=== PATIENT | male | born 2000 | race Caucasian/White ===

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

== ENCOUNTER 2019-08-24 10:30 | Emergency (ER) | payer OTHER, BC ==
--- OUTSIDE RECORDS SUMMARY | 2019-08-24 10:51 | XMS REPORT | Continuity of Care Document ---
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 Problems Description No Information Available Social History Type Date Description Comments Sex Unknown ETOH Use Occasionally consumes alcohol Tobacco Use Start: Unknown Patient has never smoked Smoking Status Reviewed: 08/07/19 Patient has never smoked Exercise Type/Frequency Exercises regularly Allergies, Adverse Reactions, Alerts Description No Known Drug Allergies Medications Active Medications SIG Qnty Indications Ordering Provider Date Naproxen 1 tablet with food Unknown 500mg Tablets by mouth twice a day From Hospital History Medications No Active Medications Unknown 07/31/2019 - 07/31/2019 Immunizations Description No Information Available Vital Signs Date Vital Result Comment 08/07/2019 11:31am Height 71 inches 5'11" Weight 195.00 lb Heart Rate 96 /min BP Systolic Sitting 116 mmHg BP Diastolic Sitting 90 mmHg Respiratory Rate 14 /min Pain Level 4 O2 % BldC Oximetry 97 % BMI (Body Mass Index) 27.2 kg/m2 07/31/2019 11:47am Height 72 inches 6'0" Weight 195.00 lb Heart Rate 92 /min Respiratory Rate 16 /min Body Temperature 98.0 F Pain Level 3 at rest O2 % BldC Oximetry 98 % BMI (Body Mass Index) 26.4 kg/m2 Results Description No Information Available Procedures Date Code Description Status 08/07/201980902 Inject/Drain Joint/Bursa Major W/O US Completed 07/31/2019 88959 Xray Knee 3 Views Completed Medical Devices Description No Information Available Encounters Type Date Location Provider Dx Diagnosis Office Visit 07/31/2019 [facility] Adrián Carrasco, M25.461 Effusion, right 11:30a at [place] MD knee M23.91 Unspecified internal derangement of right knee M25.561 Pain in right knee Assessments Date Code Description Provider 08/07/2019 S72.401D Unspecified fracture of lower end of right Adrián Carrasco MD femur, subsequent encounter for closed fracture with routine healing 08/07/2019 M25.061 Hemarthrosis, right knee Adrián Carrasco MD 07/31/2019 M25.461 Effusion, right knee Adrián Carrasco MD 07/31/2019 M23.91 Unspecified internal derangement of right knee Adrián Carrasco MD 07/31/2019 M25.561 Pain in right knee Adrián Carrasco MD Plan of Treatment Future Appointment(s):08/21/2019 11:30 am - Adrián Carrasco MD at [facility] at [facility]/05/2019 - Adrián Carrasco MDS72.401D Unspecified fracture of lower end of right femur, subsequent encounter for closed fracture with routine healingFollow up:Follow up: 2 [id number] Hemarthrosis, right knee Functional Status Description No Information Available Mental Status Description No Information Available Referrals Description No Information Available
--- OUTSIDE RECORDS SUMMARY | 2019-08-24 10:51 | XMS REPORT | Continuity of Care Document ---
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 Problems Description No Information Available Social History Type Date Description Comments Sex Unknown ETOH Use Occasionally consumes alcohol Tobacco Use Start: Unknown Patient has never smoked Exercise Type/Frequency Exercises regularly Allergies, Adverse Reactions, Alerts Description No Known Drug Allergies Medications Active Medications SIG Qnty Indications Ordering Provider Date Naproxen 1 tablet with food Unknown 500mg Tablets by mouth twice a day From Hospital History Medications No Active Medications Unknown 07/31/2019 - 07/31/2019 Immunizations Description No Information Available Vital Signs Date Vital Result Comment 07/31/2019 11:47am Height 72 inches 6'0" Weight 195.00 lb Heart Rate 92 /min Respiratory Rate 16 /min Body Temperature 98.0 F Pain Level 3 at rest O2 % BldC Oximetry 98 % BMI (Body Mass Index) 26.4 kg/m2 Results Description No Information Available Procedures Description No Information Available Medical Devices Description No Information Available Encounters Description No Information Available Assessments Date Code Description Provider 07/31/2019 M25.461 Effusion, right knee Adrián Carrasco MD 07/31/2019 M23.91 Unspecified internal derangement of right knee Adrián Carrasco MD Plan of Treatment 07/31/2019 - Adrián Carrasco, MDM25.461 Effusion, right kneeNew Xrays:MRI Knee Right W/O, Ordered: 07/31/19Follow up:Follow up: after testing is [id number] Unspecified internal derangement of right knee Functional Status Description No Information Available Mental Status Description No Information Available Referrals Description No Information Available
[2019-08-24 11:39] VITALS: BP 129/72
--- NOTE | 2019-08-24 12:07 | ED ---
Throat Pain/Nasal Congestion - HPI Summary HPI Summary: 19 yr old male with the complaint of sore throat. Onset of sore throat was a couple of days ago. Associated with fever. he is a college student. no runny nose or coughing. No other complaints. - History of Current Complaint Chief Complaint: UCRespiratory Time Seen by Provider: 08/24/19 11:43 - Allergies/Home Medications Allergies/Adverse Reactions: Allergies Allergy/AdvReac Type Severity Reaction Status Date / Time dog, cat Allergy Eyes Uncoded 08/24/19 11:39 Itchy/Swollen/Red/Watery Home Medications: Home Medications Ibuprofen TAB* [Motrin TAB* 400 MG] 400 mg PO ONCE PRN 08/24/19 [History Confirmed 08/24/19] PMH/Surg Hx/FS Hx/Imm Hx Endocrine/Hematology History: Denies: Hx Diabetes Cardiovascular History: Denies: Hx Pacemaker/ICD Respiratory History: Reports: Hx Asthma History: Denies: Hx Renal Disease Sensory History: Denies: Hx Hearing Aid Psychiatric History: Denies: Hx Panic Disorder Infectious Disease History: No Infectious Disease History: Denies: Traveled Outside the [place] in Last 30 Days - Family History Known Family History: Positive: Other - parents living and healthy Negative: Respiratory Disease - Social History Occupation: Student Alcohol Use: Weekly Alcohol Amount: 10-20 Substance Use Type: Reports: None Smoking Status (MU): Never Smoked Tobacco Review of Systems Positive: Fever Positive: Sore Throat All Other Systems Reviewed And Are Negative: Yes Physical Exam Triage Information Reviewed: Yes Vital Signs On Initial Exam: Initial Vitals Temp Pulse Resp BP Pulse Ox 100.9 F 112 20 129/72 98 08/24/19 11:30 08/24/19 11:30 08/24/19 11:30 08/24/19 11:30 08/24/19 11:30 Vital Signs Reviewed: Yes Appearance: Positive: Well-Appearing, No Pain Distress Skin: Positive: Warm, Skin Color Reflects Adequate Perfusion Head/Face: Positive: Normal Head/Face Inspection Eyes: Positive: EOMI ENT: Positive: Pharyngeal erythema Neck: Positive: Nontender Respiratory/Lung Sounds: Positive: Clear to Auscultation, Breath Sounds Present Cardiovascular: Positive: RRR. Negative: Murmur Abdomen Description: Negative: Distended Musculoskeletal: Positive: Strength/ROM Intact Neurological: Positive: Sensory/Motor Intact, Alert, Oriented to Person Place, Time, CN Intact II-III, Normal Gait, Speech Normal Psychiatric: Positive: Normal Diagnostics - Vital Signs Vital Signs Temp Pulse Resp BP Pulse Ox 08/24/19 11:30 100.9 F 112 20 129/72 98 - Laboratory Lab Results: Lab Results 08/24/19 Range/Units 11:48 Group A Strep Rapid Positive A (Negative) Lab Statement: Any lab studies that have been ordered have been reviewed, and results considered in the medical decision making process. EENT Course/Dx - Course Course Of Treatment: 19 yr old with strep pharyngitis; rx with amox - Diagnoses Provider Diagnoses: Strep pharyngitis Discharge ED - Sign-Out/Discharge Documenting (check all that apply): Patient Departure All imaging exams completed and their final reports reviewed: No Studies - Discharge Plan Condition: Good Disposition: HOME Prescriptions: Amoxicillin PO (*) [Amoxicillin 500 MG CAP*] 500 mg PO TID #30 cap Patient Education Materials: Strep Throat (DC) Referrals: No Primary Care Phys,NOPCP [Primary Care Provider] - [facility] [Outside] - Billing Disposition and Condition Condition: GOOD Disposition: Home
== END 2019-08-24 12:09 | disposition home or self-care (01) ==
LOC: UCCORT 10:30
DX: J02.0 Streptococcal pharyngitis (principal); J45.909 Unspecified asthma, uncomplicated; Z91.09 Other allergy status, other than to drugs and biological substances
CPT/HCPCS: 87651; 99212; G0463